=== PATIENT | male | born 1975 | race Caucasian/White ===

== ENCOUNTER 2021-06-17 14:24 | Emergency (ER) | payer SELFPAY ==
[2021-06-17] MEDS ORDERED: Labetalol 20 MG/4 ML Syringe IVPUSH ONE (14:55)
[2021-06-17] MEDS ORDERED: Sodium Chloride 0.9% 10 ML Syringe FLUSH PRN (14:59)
[2021-06-17] MEDS ORDERED: amLODIPine 10 MG Tab PO STA (15:12)
[2021-06-17] MEDS ORDERED: Losartan 100 MG Tab PO STA (15:12)
== END 2021-06-17 16:35 | disposition home or self-care (01) ==
LOC: FB.ED 14:24
DX: I16.9 Hypertensive crisis, unspecified (principal); I10 Essential (primary) hypertension; E66.9 Obesity, unspecified; Z68.42 Body mass index [BMI] 45.0-49.9, adult; Z79.899 Other long term (current) drug therapy; Z72.0 Tobacco use
CPT/HCPCS: 36415; 80053; 83880; 84484; 85025; 93005; 96374; 99283; A9270; J3490